=== PATIENT | female | born 1980 | race Caucasian/White ===

== ENCOUNTER 2022-03-14 10:09 | Outpatient (CLI) | payer OTHER, SELFPAY ==
--- NOTE | ~2022-03-14 | MR_ITS ---
EXAMINATION: MR brain/brain stem wo con DATE: 03/14/2022 14:00 INDICATION: Chronic migraines without aura TECHNIQUE: Magnetic resonance imaging (MRI) of the brain and brainstem was performed without intraven ous contrast. Sequences included sagittal and axial T1-weighted SE, axial diffusion-weighted FS SE, a xial T2*-weighted GRE, axial 3D SWAN, axial T2-weighted FLAIR, and axial T2-weighted FSE. Apparent di ffusion coefficient (ADC) maps were created. COMPARISON: None. FINDINGS: There are no areas of restricted diffusion to suggest acute infarction. No intracranial hemorrhage or abnormal intracranial mass lesion. There are no intraparenchymal signal abnormalities seen on the ot her pulse sequences. The ventricles are symmetric and normal in size. There are no abnormal extra-axi al fluid collections. Flow voids are seen in the cerebral arteries on the T2-weighted sequences consi stent with their expected patency. Mild mucosal thickening the right ethmoid and maxillary sinuses. V isualized orbits and soft tissues are unremarkable. IMPRESSION: 1. Normal brain. Reviewed, dictated and finalized at location A. GER PRIVATE IMPRESSION: 1. Normal brain.
== END 2022-03-14 10:10 | disposition home or self-care (01) ==
PROVIDERS: PCP Nurse Practitioner Family; Visit Provider Nurse Practitioner Family
DX: G43.709 Chronic migraine without aura, not intractable, without status migrainosus (principal); R42 Dizziness and giddiness; G44.52 New daily persistent headache (NDPH); H53.8 Other visual disturbances
CPT/HCPCS: 70551

== ENCOUNTER → 2022-04-29 11:08 | Outpatient (CLI) | payer OTHER, SELFPAY ==
--- NOTE | ~2022-04-29 | MM_ITS ---
EXAMINATION: MM screening cherelle BI w markell HISTORY: Screening mammogram TECHNIQUE: Craniocaudal and mediolateral oblique 3-D tomosynthesis images were obtained and synthetic 2-D images were generated. CAD analysis was submitted and interpreted. COMPARISON: 02/20/2014 bilateral diagnostic mammogram BREAST PARENCHYMAL COMPOSITION: There are scattered areas of fibroglandular density. FINDINGS: There is no evidence of suspicious mass, calcification, or architectural distortion to sugg est malignancy in either breast. There has been no suspicious interval change. IMPRESSION: 1. No mammographic evidence of malignancy. 2. Recommend routine screening mammography in one year. BI-RADS Category 1: Negative Reviewed, dictated and finalized at location A. 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
== END ==
PROVIDERS: PCP Nurse Practitioner Family; Visit Provider Nurse Practitioner Family
DX: Z12.31 Encounter for screening mammogram for malignant neoplasm of breast (principal)
CPT/HCPCS: 77063; 77067

== ENCOUNTER 2022-08-17 07:26 | Outpatient (CLI) | payer OTHER, SELFPAY ==
--- NOTE | ~2022-08-17 | MR_ITS ---
EXAMINATION: MR pituitary wo/w con DATE: 08/17/2022 08:29 INDICATION: Prolactinemia TECHNIQUE: Magnetic resonance imaging (MRI) of the brain and brainstem was performed without and with 20 mL Multihance intravenous contrast. Whole-brain sequences included sagittal T1-weighted FSE, axia l diffusion-weighted FS EPI, axial 3D SWAN, axial T2*-weighted GRE, axial T2-weighted FLAIR Propeller , and axial T2-weighted Propeller. Small rlmpo-zj-ztdu sequences included sagittal and coronal T1-ben ghted FSE centered at the pituitary. Postcontrast sequences included small rrnxr-sb-qjim coronal T1- weighted FSE in a time course and sagittal T1-weighted FSE and whole-brain axial T1-weighted FSE. Zo arent diffusion coefficient (ADC) maps were created. COMPARISON: None. FINDINGS: There are no areas of restricted diffusion to suggest acute infarction. No intracranial hemorrhage. T here is a 7 x 6 x 7 mm hypoenhancing mass in the mid to left side of the pituitary. No extension of p ituitary tissue above level of the sella. Pituitary stalk remains midline. Findings consistent with a pituitary microadenoma. There are no other intraparenchymal signal abnormalities seen on the other p ulse sequences. The ventricles are symmetric and normal in size. There are no abnormal extra-axial fl uid collections. Flow voids are seen in the cerebral arteries on the T2-weighted sequences consistent with their expected patency. Mucosal thickening in the paranasal sinuses. Visualized orbits and soft tissues are unremarkable. There are no other abnormally enhancing lesions on the post contrast image s. IMPRESSION: 1. 7 mm hypoenhancing mass in the mid to left side of the pituitary consistent with a pituitary micro adenoma. Reviewed, dictated and finalized at location A. IMPRESSION: 1. 7 mm hypoenhancing mass in the mid to left side of the pituitary consistent with a pituitary microadenoma.
== END 2022-08-17 07:27 | disposition home or self-care (01) ==
PROVIDERS: PCP Nurse Practitioner Family; Visit Provider Obstetrics & Gynecology Gynecology
DX: E22.1 Hyperprolactinemia (principal)
CPT/HCPCS: 70553; A9577

== ENCOUNTER → 2022-09-17 08:20 | Outpatient (CLI) | payer OTHER, SELFPAY ==
--- NOTE | ~2022-09-17 | US_ITS ---
Pelvic ultrasound. Clinical History: Irregular menses Technique: Realtime transvaginal scanning of the pelvis was performed. Color flow Doppler and Doppler spectral analysis were performed. Findings: The uterus is anteverted. The endometrial stripe has a thickness of 2 mm. No focal mass is identified. The right ovary measures 2.1 x 1.5 x 2.4 cm. No significant right ovarian or adnexal mass is seen. The left ovary measures 2.5 x 1.7 x 1.4 cm. No significant left ovarian or adnexal mass is seen. Vascular flow present in both ovaries on Doppler spectral analysis. There is no evidence of free fluid in the cul de sac. Impression: Unremarkable pelvic ultrasound. Reviewed, dictated and finalized at location . Impression: Unremarkable pelvic ultrasound.
--- NOTE | ~2022-09-17 | US_ITS ---
Thyroid ultrasound. Clinical History: Goiter Findings: Real-time sonography of the thyroid gland was performed. The right lobe measures 5.3 x 1.5 x 1.7 cm. The left lobe measures 4.3 x 1.3 x 1.5 cm. The isthmus is 3 mm in AP diameter. There is a 5 mm hypoechoic nodule in the left lower pole. Impression: 5 mm left lower pole thyroid nodule, of doubtful clinical significance. Reviewed, dictated and finalized at location . Impression: 5 mm left lower pole thyroid nodule, of doubtful clinical significance.
== END ==
PROVIDERS: PCP Obstetrics & Gynecology Gynecology; Visit Provider Internal Medicine Endocrinology, Diabetes & Metabolism
DX: E04.9 Nontoxic goiter, unspecified (principal); N92.6 Irregular menstruation, unspecified
CPT/HCPCS: 76536; 76830

== ENCOUNTER 2023-02-26 09:46 | Emergency (ER) | payer OTHER, SELFPAY ==
--- NOTE | ~2023-02-26 | US_ITS ---
EXAMINATION: US right upper quadrant DATE: 02/26/2023 14:59 INDICATION: Elevated lipase and liver function tests TECHNIQUE: Multiple grayscale and Doppler ultrasound images of the abdomen were obtained. COMPARISON: None available FINDINGS: Bowel gas obscures visualization of the pancreas. The visualized portions of the pancreas a re unremarkable. The liver demonstrates increased echogenicity, heterogenous echotexture, and decreas ed through transmission. No surface nodularity. Normal hepatopetal flow in the main portal vein. The gallbladder is normal with no abnormal wall thickening, pericholecystic fluid or stones. The normal c ommon bile duct measures 3 mm. There was no sonographic Giordano sign. IMPRESSION: 1. Diffuse hepatic steatosis. Reviewed, dictated and finalized at location B. 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
[2023-02-26 09:47] VITALS: BP 134/87; PULSE 85; RESP 16; TEMP 36.4; O2SAT 99
--- NOTE | 2023-02-26 10:16 | ED.NAVMDI ---
HPI - Nausea/Vomiting/Diarrhea General Chief complaint: Nausea/Vomiting/Diarrhea <Cynthia Astudillo PA-C - Last Filed: 02/26/23 20:20> Stated complaint: 5 1/2 WKS PREG N/V <Cynthia Astudillo PA-C - Last Filed: 02/26/23 20:20> Time Seen by Provider: 02/26/23 10:10 <Cynthia Astudillo PA-C - Last Filed: 02/26/23 20:20> History of Present Illness HPI Narrative: 43-year-old female, , LMP 01/07/2023, who is currently 5 and half weeks gestation reports for evaluation for nausea and vomiting x3 days. Patient states she has been having difficulty keeping down food and fluids secondary to nausea and vomiting. States she called her OB office who advised her to come to the ED for further evaluation IV fluids. She reports a mild cough, denies sore throat, otalgia, congestion. She reports intermittent epigastric abdominal pain but states she is not having any abdominal pain now. She denies suprapubic pain, vaginal bleeding or vaginal discharge. Denies dysuria, hematuria, urinary frequency or urgency, diarrhea. <PAMELA Collins Last Filed: 02/26/23 20:20> Related Data Allergies/Adverse reactions: Allergies Allergy/AdvReac Type Severity Reaction Status Date / Time No Known Allergies Allergy Mild Verified 12/09/07 01:18 <Cynthia Astudillo PA-C - Last Filed: 02/26/23 20:20> Review of Systems Review of Systems: CONSTITUTIONAL: Denies fever, chills, or sweats. EYES: Denies visual changes, redness, or discharge. ENT: Denies rhinorrhea, congestion, sore throat, or otalgia. CARDIOVASCULAR: Denies chest pain, palpitations, or edema. RESPIRATORY: Denies cough or dyspnea. GASTROINTESTINAL: See HPI GENITOURINARY: Denies dysuria or hematuria. SKIN: Denies rash or itching. MUSCULOSKELETAL: Denies back pain, joint pain, or myalgia. NEUROLOGIC: Denies headache, numbness, or weakness. PSYCHIATRIC: Denies anxiety or depression. <Cynthia Astudillo PA-C - Last Filed: 02/26/23 20:20> Exam Narrative: GENERAL: Well-appearing, well-nourished, and in no acute distress. patient resting comfortably in exam bed. She is pleasant and conversational. HEAD: Normocephalic, atraumatic. EYES: PERRLA and EOMI. ENT: Nares clear, no rhinorrhea or epistaxis. Mucous membranes tacky. NECK: Supple. CHEST: Clear to auscultation. No respiratory distress. HEART: Regular rate and rhythm. No murmur heard. Normal peripheral pulses. ABDOMEN: Soft, nontender, nondistended, normal active bowel sounds. no guarding, rebound or rigidity. No CVA tenderness. Negative Giordano's. EXTREMITIES: Normal range of motion. No edema. SKIN: Warm, dry, no rash. NEURO: No focal deficits. Alert and oriented x3 <Cynthia Astudillo PA-C - Last Filed: 02/26/23 20:20> Course DISABILITY SERVICES COORDINATOR/PA Physician Supervision This visit was performed by both a physician and an APC. I performed all aspects of the MDM as documented. <Alicia Saldivar MD - Last Filed: 02/26/23 20:27> Vital Signs Vital signs: Vital Signs Temperature 97.6 F 02/26/23 09:47 Pulse Rate 85 02/26/23 09:47 Respiratory Rate 16 02/26/23 09:47 Blood Pressure 134/87 02/26/23 09:47 Pulse Oximetry 99 02/26/23 09:47 Temperature 98.0 F 02/26/23 15:29 Pulse Rate 71 02/26/23 15:29 Respiratory Rate 18 02/26/23 15:29 Blood Pressure 116/74 02/26/23 15:29 Pulse Oximetry 100 02/26/23 15:29 <Cynthia Astudillo PA-C - Last Filed: 02/26/23 20:20> Vital Signs Temperature 97.6 F 02/26/23 09:47 Pulse Rate 85 02/26/23 09:47 Respiratory Rate 16 02/26/23 09:47 Blood Pressure 134/87 02/26/23 09:47 Pulse Oximetry 99 02/26/23 09:47 Temperature 98.0 F 02/26/23 15:29 Pulse Rate 71 02/26/23 15:29 Respiratory Rate 18 02/26/23 15:29 Blood Pressure 116/74 02/26/23 15:29 Pulse Oximetry 100 02/26/23 15:29 <Alicia Saldivar MD - Last Filed: 02/26/23 20:27> MDM - Nausea/Vomiting/Diarrhea MDM Narrative [facility]
[2023-02-26] MEDS: METOCLOPRAMIDE HCL INJ 10 MG/2 ML VIAL IV PUSH (10:43)
[2023-02-26] MEDS: SODIUM CHLORIDE 0.9% IV 1,000 ML 999 ML IV CONT ×2 (10:43→12:48)
[2023-02-26 11:01] LABS: Basophils Absolute Auto 0.1 K/mm3 (0.0-0.1); Basophils Percent Auto 0.5 % (0.2-1.2); Eosinophils Absolute Auto 0.1 K/mm3 (0-0.3); Eosinophils Percent Auto 1.1 % (0-4.4); Hematocrit 39.8 % (37.0-47.0); Hemoglobin 13.3 g/dL (12.0-15.0); Immature Granulocyte Absolute 0.06 K/mm3 (0.00-0.031); Immature Granulocyte Percent A 0.5 % (0-0.5); Lymphocytes Absolute Auto 1.78 K/mm3 (0.9-3.2); Lymphocytes Percent Auto 14.6 % (18.3-44.2); Mean Corpuscular HGB Conc 33.4 g/dl (32-36); Mean Corpuscular Hemoglobin 29.3 pg (26-34); Mean Corpuscular Volume 87.7 fl (80-100); Monocytes Absolute Auto 0.8 K/mm3 (0.1-0.6); Monocytes Percent Auto 6.7 % (2.6-8.5); Neutrophils Absolute Auto 9.3 K/mm3 (1.3-6.7); Neutrophils Percent Auto 76.6 % (45.5-73.1); Platelet Count Result 302 k/mm3 (150-375); Red Blood Count 4.54 M/mm3 (4.2-5.4); Red Cell Distribution Width 13.1 % (11.5-14.5); White Blood Count 12.2 K/mm3 (4.5-10.0)
--- NOTE | 2023-02-26 11:03 | PC.NURSE ---
Pt reports last meal that she didn't vomit wa 02/21/23. Reports since then unable to keep liquids or solid food down. No emesis since arrival to ER
[2023-02-26 11:12] LABS: Alanine Aminotransferase 86 U/L (6-35); Albumin Level 4.6 g/dL (3.5-5.1); Alkaline Phosphatase 69 U/L (38-126); Anion Gap 13 mmol/L (8-16); Aspartate Amino Transferase 61 U/L (14-36); Blood Urea Nitrogen 9 mg/dL (7-17); Calcium 9.3 mg/dL (8.4-10.2); Carbon Dioxide 20 mmol/L (22-30); Chloride 103 mmol/L (98-107); Estimated CRCL calculation 137 ml/min; Estimated Glomerular Filt Rate > 60; Glucose 96 mg/dL (65-110); Potassium 3.9 mmol/L (3.4-5.0); Sodium 136 mmol/L (137-145)
[2023-02-26 11:20] LABS: Appearance Urine Cloudy (Clear); Bacteria Urine 3+ /hpf; Bilirubin Urine 2+ (Negative); Blood Urine Negative (Negative); Color Urine Dark Yellow (Yellow); Glucose Urine UA Negative (Negative); Influenza A QL RT-PCR Negative (Negative); Influenza B QL RT-PCR Negative (Negative); Ketones Urine 4+ mg/dL (Negative); Leukocyte Esterase Ur Trace LEU/UL (Negative); Mucus Urine Present /lpf; Need Manual Microscopic Reviewed; Nitrate Urine Negative (Negative); Protein Urine Trace mg/dL (Negative); RSV RNA, RT-PCR Negative (Negative); SARS-CoV-2 RNA PCR Negative (Negative); Specific Grav Ur 1.033 (1.001-1.035); Squamous Epithelial Cell Urine Few /hpf (Few); pH Urine 5.5 (5.0-9.0)
[2023-02-26 11:36] LABS: Add Urine Microscopic? YES
[2023-02-26 11:36] LABS: Serum Qual hCG Positive
[2023-02-26 11:38] LABS: SPREG INTERNAL CONTROL Positive
[2023-02-26 12:00] VITALS: BP 115/73; PULSE 63; RESP 18; O2SAT 100
[2023-02-26 13:09] VITALS: BP 111/78; PULSE 64; RESP 16; O2SAT 100
[2023-02-26 13:45] VITALS: BP 116/74; PULSE 65; RESP 18; O2SAT 100
[2023-02-26 14:27] LABS: Lipase 387 U/L (23-300)
[2023-02-26 15:29] VITALS: BP 116/74; PULSE 71; RESP 18; TEMP 36.7; O2SAT 100
== END 2023-02-26 15:43 | disposition home or self-care (01) ==
PROVIDERS: Emergency Provider Physician Assistant; PCP Obstetrics & Gynecology Gynecology
DX: O21.9 Vomiting of pregnancy, unspecified (principal); O99.611 Diseases of the digestive system complicating pregnancy, first trimester; K76.0 Fatty (change of) liver, not elsewhere classified; Z20.822 Contact with and (suspected) exposure to COVID-19; O09.511 Supervision of elderly primigravida, first trimester; Z3A.01 Less than 8 weeks gestation of pregnancy
CPT/HCPCS: 36415; 76705; 80053; 81001; 83690; 84702; 84703; 85025; 87086; 87088; 87637; 96361; 96374; 99284; J2765; J7030

== ENCOUNTER 2023-03-05 09:58 | Outpatient (CLI) | payer OTHER, SELFPAY ==
--- NOTE | ~2023-03-05 | US_ITS ---
EXAMINATION: US OB transvaginal DATE: 1980 INDICATION: viability. TECHNIQUE: Real-time transvaginal pelvic ultrasound was performed. COMPARISON: None. FINDINGS: The uterus measures 8.8 x 5.2 x 8.1 cm. There is an intrauterine gestational sac. A yolk sac is ident ified. The crown rump length measures 1.5 cm, which correlates with an estimated gestational a ge of 8 weeks and 0 day(s) (+/-) 5 day(s). heart motion is identified measuring 168 beats per m inute (bpm) by M-mode Doppler. The right ovary measures 4.8 x 3.1 x 4.4 cm. There is a 3.6 cm cyst in right ovary, likely a follicular cyst. The left ovary is not visualized. There is physiologic free f luid in the pelvis. IMPRESSION: 1. Single living intrauterine gestation with estimated date of delivery of 10/15/2023. Reviewed, dictated and finalized at location E. OUTFITTING SUPERVISOR IMPRESSION: 1. Single living intrauterine gestation with estimated date of delivery of 09/29.
== END 2023-03-05 09:59 ==
PROVIDERS: PCP Obstetrics & Gynecology Gynecology; Visit Provider Obstetrics & Gynecology Gynecology
DX: O36.80X0 Pregnancy with inconclusive fetal viability, not applicable or unspecified (principal); Z3A.00 Weeks of gestation of pregnancy not specified
CPT/HCPCS: 76817

== ENCOUNTER 2023-04-06 14:16 | Observation (INO) | payer OTHER, SELFPAY ==
[2023-04-06 14:56] VITALS: PULSE 67; O2SAT 100
[2023-04-06 14:57] VITALS: BP 114/78; PULSE 68; RESP 16; TEMP 36.3
[2023-04-06] MEDS: ONDANSETRON INJ 4 MG/2 ML VIAL IV PUSH ×2 (15:06→22:15)
[2023-04-06] MEDS: DEXTROSE 5%/LACTATED RINGERS 1,000 ML 250 ML IV CONT (15:06)
[2023-04-06] MEDS: LACTATED RINGERS 1,000 ML 999 ML IV CONT (15:07)
[2023-04-06 15:20] LABS: Hemoglobin 11.5 g/dL (12.0-15.0); Mean Corpuscular HGB Conc 33.8 g/dl (32-36); Mean Corpuscular Hemoglobin 29.2 pg (26-34); Mean Corpuscular Volume 86.3 fl (80-100); Mean Platelet Volume 11.1 fl (7.4-10.4); Platelet Count Result 293 k/mm3 (150-375); Red Blood Count 3.94 M/mm3 (4.2-5.4); Red Cell Distribution Width 12.9 % (11.5-14.5)
[2023-04-06 15:37] VITALS: BMI 37.1
--- NOTE | 2023-04-06 15:38 | OBADM ---
This patient, Xochitl Cabello, admitted to the OB room OB Post 116 for observation. Patient/family oriented to hospital policies and general routines including ID bracelet, bed and alarms, visiting hours, pain management, procedures, bathroom and other care routines, personal items, smoking policy, room service/diet, and visiting hours. Patient/Family are encouraged to report perceived risks to care and to ask questions if they do not understand what they are told or what they should do.
[2023-04-06 15:41] LABS: Alanine Aminotransferase 194 U/L (6-35); Alkaline Phosphatase 58 U/L (38-126); Anion Gap 8 mmol/L (8-16); Aspartate Amino Transferase 96 U/L (14-36); Blood Urea Nitrogen 5 mg/dL (7-17); Calcium 9.2 mg/dL (8.4-10.2); Carbon Dioxide 23 mmol/L (22-30); Chloride 99 mmol/L (98-107); Estimated Glomerular Filt Rate > 60; Glucose 102 mg/dL (65-110); Sodium 130 mmol/L (137-145)
[2023-04-06 16:01] LABS: Thyroid Stimulating Hormone 0.433 uIU/mL (0.465-4.680)
[2023-04-06 16:25] LABS: Free T4 Free Thyroxine 1.59 ng/mL (0.78-2.19)
[2023-04-06] MEDS: PROMETHAZINE HCL 25 MG/ML AMPUL IM ×2 (16:28→20:26)
--- NOTE | 2023-04-06 16:47 | PC.NURSE ---
Miriam OSPINA notifed of lab results.
[2023-04-06] MEDS: DEXTROSE 5%/LACTATED RINGERS 1,000 ML 175 ML IV CONT (19:02)
--- NOTE | 2023-04-06 19:40 | PC.NURSE ---
1846: Dr. Renteria called to discuss patient status. Pt is feeling better with fluids and nausea medication given. gave orders that patient can go home after her second bag of D5/LR is done. She is to be discharged with suppository zofran, phenergine and hydroxyzine. She is to follow up in the office on Wednesday for a weight check.
[2023-04-10 05:54] LABS: Thyroid Peroxidase Antibodies <1 IU/mL (<9)
--- NOTE | 2023-04-12 08:28 | PM.OBTRLD ---
OB - Triage/Final Diagnosis Visit Information Reason for evaluation: other ( hyperemesis) Comments/Additional reasons for admission: I have assessed the risk for this patient, Xochitl Escamilla Destiney, and determined that she would benefit from observation care. Evaluation Laboratory results: Laboratory Tests 04/06/23 04/06/23 04/06/23 14:50 14:50 14:50 WBC 10.0 RBC 3.94 L Hgb 11.5 L Hct 34.0 L MCV 86.3 MCH 29.2 MCHC 33.8 RDW 12.9 Plt Count 293 MPV 11.1 H Sodium Cancelled 130 L Potassium Cancelled 4.0 Chloride Cancelled Carbon Dioxide Anion Gap BUN Creatinine Estim Creat Clear Calc Estimated GFR Glucose Calcium Total Bilirubin AST ALT Alkaline Phosphatase Total Protein Albumin TSH Free T4 Thyroid Peroxidase Ab 04/06/23 04/06/23 04/06/23 14:50 14:50 14:50 WBC RBC Hgb Hct MCV MCH MCHC RDW Plt Count MPV Sodium Potassium Chloride 99 Carbon Dioxide Cancelled 23 Anion Gap Cancelled 8 BUN Cancelled Creatinine Estim Creat Clear Calc Estimated GFR Glucose Calcium Total Bilirubin AST ALT Alkaline Phosphatase Total Protein Albumin TSH Free T4 Thyroid Peroxidase Ab 04/06/23 04/06/23 04/06/23 14:50 14:50 14:50 WBC RBC Hgb Hct MCV MCH MCHC RDW Plt Count MPV Sodium Potassium Chloride Carbon Dioxide Anion Gap BUN 5 L Creatinine Cancelled 0.60 L Estim Creat Clear Calc Cancelled Not Reportable Estimated GFR Cancelled Glucose Calcium Total Bilirubin AST ALT Alkaline Phosphatase Total Protein Albumin TSH Free T4 Thyroid Peroxidase Ab 04/06/23 04/06/23 04/06/23 14:50 14:50 14:50 WBC RBC Hgb Hct MCV MCH MCHC RDW Plt Count MPV Sodium Potassium Chloride Carbon Dioxide Anion Gap BUN Creatinine Estim Creat Clear Calc Estimated GFR > 60 Glucose Cancelled 102 Calcium Cancelled 9.2 Total Bilirubin Cancelled AST ALT Alkaline Phosphatase Total Protein Albumin TSH Free T4 Thyroid Peroxidase Ab 04/06/23 04/06/23 04/06/23 14:50 14:50 14:50 WBC RBC Hgb Hct MCV MCH MCHC RDW Plt Count MPV Sodium Potassium Chloride Carbon Dioxide Anion Gap BUN Creatinine Estim Creat Clear Calc Estimated GFR Glucose Calcium Total Bilirubin 1.0 AST Cancelled 96 H ALT Cancelled 194 H Alkaline Phosphatase Cancelled Total Protein Albumin TSH Free T4 Thyroid Peroxidase Ab 04/06/23 04/06/23 04/06/23 14:50 14:50 14:50 WBC RBC Hgb Hct MCV MCH MCHC RDW Plt Count MPV Sodium Potassium Chloride Carbon Dioxide Anion Gap BUN Creatinine Estim Creat Clear Calc Estimated GFR Glucose Calcium Total Bilirubin AST ALT Alkaline Phosphatase 58 Total Protein Cancelled 7.0 Albumin Cancelled 4.0 TSH 0.433 L Free T4 1.59 Thyroid Peroxidase Ab <1
== END 2023-04-07 00:10 | disposition home or self-care (01) ==
PROVIDERS: Admitting Provider Obstetrics & Gynecology Gynecology; PCP Advanced Practice Midwife; Visit Provider Obstetrics & Gynecology Gynecology
DX: O21.0 Mild hyperemesis gravidarum (principal); Z3A.12 12 weeks gestation of pregnancy
CPT/HCPCS: 36415; 80053; 84439; 84443; 84480; 85027; 86376; 96372; 96374; 96376; G0378; G0379; J2405; J2550; J7120; J7121

== ENCOUNTER 2023-08-09 01:57 | Observation (INO) | payer OTHER, SELFPAY ==
[2023-08-09 02:00] VITALS: BMI 38.7
[2023-08-09 02:46] LABS: Appearance Urine Clear (Clear); Bacteria Urine 2+ /hpf; Bilirubin Urine Negative (Negative); Blood Urine Negative (Negative); Color Urine Yellow (Yellow); Glucose Urine UA Negative (Negative); Ketones Urine Negative (Negative); Leukocyte Esterase Ur Trace LEU/UL (Negative); Nitrate Urine Negative (Negative); Non Pathogenic Casts 0-2; Protein Urine Negative (Negative); RBC Urine 0-2 /hpf (0-2); Specific Grav Ur 1.013 (1.001-1.035); Squamous Epithelial Cell Urine Few /hpf (Few); Urobilinogen Urine 0.2 mg/dL (<2.0); pH Urine 6.5 (5.0-9.0)
[2023-08-09 03:14] LABS: Add Urine Microscopic? YES
--- NOTE | 2023-08-09 03:24 | OBADM ---
This patient, Xochitl Cabello, admitted to the OB room OB Post 117 for observation. Patient/family oriented to hospital policies and general routines including ID bracelet, bed and alarms, visiting hours, pain management, procedures, bathroom and other care routines, personal items, smoking policy, room service/diet, and visiting hours. Patient/Family are encouraged to report perceived risks to care and to ask questions if they do not understand what they are told or what they should do.
--- NOTE | 2023-08-11 17:45 | P.PNOB_ITS ---
OB - Triage/Final Diagnosis Visit Information Date of evaluation: 08/09/23 Reason for evaluation: other (back pain) Comments/Additional reasons for admission: I have assessed the risk for this patient, Xochitl Gongorar, and determined that she would benefit from observation care. Evaluation Laboratory results: Laboratory Tests 08/09/23 02:27 Urine Color Yellow Urine Appearance Clear Urine pH 6.5 Ur Specific [place] 1.013 Urine Protein Negative Urine Glucose (UA) Negative Urine Ketones Negative Ur Blood (Man) Negative Urine Nitrate Negative Urine Bilirubin Negative Urine Urobilinogen 0.2 Leukocyte Esterase Rfl Trace H Urine RBC 0-2 Urine WBC 11-20 H Ur Squamous Epith Cells Few Urine Bacteria 2+ H Urine Casts 0-2 Comments: NST reactive, VSS. Pain improved spontaneously. No evidence of ROM or active labor.
== END 2023-08-09 03:35 ==
PROVIDERS: Advanced Practice Midwife; Admitting Provider Obstetrics & Gynecology Gynecology; PCP Nurse Practitioner Family; Visit Provider Obstetrics & Gynecology Gynecology
DX: O99.891 Other specified diseases and conditions complicating pregnancy (principal); M54.9 Dorsalgia, unspecified; Z3A.30 30 weeks gestation of pregnancy
CPT/HCPCS: 81001; 87086; 87088; G0378; G0379

== ENCOUNTER 2023-09-01 12:39 | Outpatient (CLI) | payer OTHER, SELFPAY ==
--- NOTE | ~2023-09-01 | US_ITS ---
EXAMINATION: US OB follow up DATE: 09/01/2023 13:11 INDICATION: Expected size less than expected for estimated gestational age during third trimest er . TECHNIQUE: Real-time ultrasound of the pelvis was performed. The interpreting radiologist was not pre sent for the study. COMPARISON: 03/05/23 FINDINGS: There is a single living fetus in breech presentation. The placenta is posterior and not low-lying. heart rate is 130 beats per minute (bpm). The amniotic fluid index is 15.6 cm, which is normal (5th%-95%: 8.3-24.5 cm at 33 weeks estimated gestational age). The following biometric data were obtained: BPD: 8.3 cm -> 33 weeks 2 days Head circumference: 30.2 cm -> 33 weeks 4 days Abdominal circumference: 29.5 cm -> 33 weeks 3 days Femur length: 6.3 cm -> 32 weeks 5 days These measurements are concordant. Head circumference to abdominal circumference ratio: 1.03 (normal range 0.96-1.11). Estimated weight: 2154 g (+/-) 323 g or 4 lbs. 12 oz. (+/-) 11 oz. IMPRESSION: 1. Single living fetus in breech presentation with heart rate of 130 bpm. 2. Normal amniotic fluid index of 15.6 cm. 3. Estimated weight is 29th percentile by Hadlock criteria when 10/15/2023 is used as the estima rene date of delivery (VINICIO). Please correlate with clinical information or earlier ultrasounds for mos t accurate VINICIO. Reviewed, dictated and finalized at location B. IMPRESSION: 1. Single living fetus in breech presentation with heart rate of 130 bpm. 2. Normal amniotic fluid index of 15.6 cm. 3. Estimated weight is 29th percentile by Hadlock criteria when 10/15/2023 is used as the estimated date of delivery (VINICIO). Please correlate with clinica l information or earlier ultrasounds for most accurate VINICIO.
== END 2023-09-01 12:40 ==
LOC: MICIMG 12:40
PROVIDERS: PCP Advanced Practice Midwife; Visit Provider Advanced Practice Midwife
DX: O36.5930 Maternal care for other known or suspected poor fetal growth, third trimester, not applicable or unspecified (principal); Z3A.00 Weeks of gestation of pregnancy not specified
CPT/HCPCS: 76816

== ENCOUNTER 2023-09-18 08:54 | Outpatient (CLI) | payer OTHER, SELFPAY ==
[2023-09-18] VITALS (19 sets, daily range): BP systolic 108–120; BP diastolic 68–74; PULSE 73–98; O2SAT 96–100; BMI 41.6
[2023-09-18] MEDS: TERBUTALINE SULFATE 1 MG/ML VIAL 0.25 MG SUB-Q (09:45)
--- NOTE | 2023-09-18 10:08 | W.PM.PROC2 ---
Procedure Note - Detailed Date of Procedure 09/18/23 Pre-op Diagnosis External Version Post-op Diagnosis Same Procedure Performed failed external version Surgeon Rosio Renteria MD Anesthesia None Findings vertex RUQ with infant back down. Normal fluid. Description of Procedure Attempted x 4 to manually rotate infant without success. Ultrasound guided. Fetus and mother tolerated well. Estimated Blood Loss 0 Drains No Packing No Pathology None sent Complications No immediate complications Condition Stable Disposition Observation
== END 2023-09-18 10:30 | disposition home or self-care (01) ==
LOC: ANHOBOP 08:57 → ANHOBPP 08:58
PROVIDERS: PCP Nurse Practitioner Family; Visit Provider Obstetrics & Gynecology Gynecology
DX: O32.1XX0 Maternal care for breech presentation, not applicable or unspecified (principal); Z3A.00 Weeks of gestation of pregnancy not specified
CPT/HCPCS: 99199; J3105

== ENCOUNTER 2023-09-18 22:46 | Observation (INO) | payer OTHER, SELFPAY ==
[2023-09-18 23:00] VITALS: BMI 41.3
[2023-09-18 23:21] VITALS: BP 131/81; PULSE 70
[2023-09-18 23:31] VITALS: BP 107/72; PULSE 78
[2023-09-18 23:31] LABS: Appearance Urine Clear (Clear); Bacteria Urine 2+ /hpf; Bilirubin Urine Negative (Negative); Blood Urine Negative (Negative); Color Urine Yellow (Yellow); Glucose Urine UA Negative (Negative); Ketones Urine Trace mg/dL (Negative); Leukocyte Esterase Ur Trace LEU/UL (Negative); Nitrate Urine Negative (Negative); Protein Urine Trace mg/dL (Negative); RBC Urine 0-2 /hpf (0-2); Specific Grav Ur 1.024 (1.001-1.035); Squamous Epithelial Cell Urine Few /hpf (Few)
[2023-09-18 23:32] LABS: Add Urine Microscopic? YES
[2023-09-18] MEDS: CYCLOBENZAPRINE HCL 10 MG TABLET PO (23:48)
--- NOTE | 2023-09-27 08:47 | PM.OBTRLD ---
OB - Triage/Final Diagnosis Visit Information Reason for evaluation: other (back pain) Comments/Additional reasons for admission: I have assessed the risk for this patient, Xochitl Cabello, and determined that she would benefit from observation care. Evaluation Laboratory results: Laboratory Tests 09/18/23 23:15 Urine Color Yellow Urine Appearance Clear Urine pH 7.0 Ur Specific [place] 1.024 Urine Protein Trace Urine Glucose (UA) Negative Urine Ketones Trace H Ur Blood (Man) Negative Urine Nitrate Negative Urine Bilirubin Negative Urine Urobilinogen 1.0 Leukocyte Esterase Rfl Trace H Urine RBC 0-2 Urine WBC 11-20 H Ur Squamous Epith Cells Few Urine Bacteria 2+ H Urine Casts 3-5
== END 2023-09-19 01:02 ==
PROVIDERS: Admitting Provider Obstetrics & Gynecology Gynecology; PCP Nurse Practitioner Family; Visit Provider Obstetrics & Gynecology Gynecology
DX: O99.891 Other specified diseases and conditions complicating pregnancy (principal); M54.9 Dorsalgia, unspecified; Z3A.36 36 weeks gestation of pregnancy
CPT/HCPCS: 81001; 87086; 87088; 99199; A9270; G0378; G0379; J3105

== ENCOUNTER 2023-09-28 10:39 | Outpatient (CLI) | payer OTHER, SELFPAY ==
[2023-09-28 10:53] VITALS: BP 109/79; PULSE 92
[2023-09-28 11:15] VITALS: BP 109/70; PULSE 89
[2023-09-28] MEDS: ACETAMINOPHEN 500 MG TABLET 1000 MG PO (11:25)
[2023-09-28 11:28] LABS: Basophils Absolute Auto 0.1 K/mm3 (0.0-0.1); Basophils Percent Auto 0.4 % (0.2-1.2); Eosinophils Absolute Auto 0.1 K/mm3 (0-0.3); Hematocrit 33.7 % (37.0-47.0); Hemoglobin 10.8 g/dL (12.0-15.0); Immature Granulocyte Absolute 0.06 K/mm3 (0.00-0.031); Immature Granulocyte Percent A 0.5 % (0-0.5); Lymphocytes Absolute Auto 1.78 K/mm3 (0.9-3.2); Lymphocytes Percent Auto 13.7 % (18.3-44.2); Mean Corpuscular Hemoglobin 28.4 pg (26-34); Mean Corpuscular Volume 88.7 fl (80-100); Mean Platelet Volume 11.1 fl (7.4-10.4); Monocytes Absolute Auto 0.7 K/mm3 (0.1-0.6); Monocytes Percent Auto 5.1 % (2.6-8.5); Neutrophils Absolute Auto 10.3 K/mm3 (1.3-6.7); Neutrophils Percent Auto 79.3 % (45.5-73.1); Platelet Count Result 299 k/mm3 (150-375); Red Cell Distribution Width 14.2 % (11.5-14.5)
[2023-09-28 11:30] VITALS: BP 112/75; PULSE 88
[2023-09-28 11:30] LABS: Alanine Aminotransferase 43 U/L (6-35); Albumin Level 3.6 g/dL (3.5-5.1); Alkaline Phosphatase 156 U/L (38-126); Anion Gap 11 mmol/L (4-12); Aspartate Amino Transferase 58 U/L (14-36); Bilirubin,Total 0.4 mg/dL (0.2-1.3); Blood Urea Nitrogen 6 mg/dL (7-17); Carbon Dioxide 18 mmol/L (22-30); Chloride 104 mmol/L (98-107); Estimated Glomerular Filt Rate > 60; Glucose 122 mg/dL (65-110); Potassium 3.4 mmol/L (3.4-5.0); Sodium 133 mmol/L (137-145); Uric Acid 4.5 mg/dL (2.5-7.5)
[2023-09-28 11:31] LABS: Creatinine Urine 190.3 mg/dL
[2023-09-28 11:32] LABS: Appearance Urine Cloudy (Clear); Bacteria Urine 4+ /hpf; Bilirubin Urine Negative (Negative); Blood Urine Negative (Negative); Color Urine Dark Yellow (Yellow); Glucose Urine UA Negative (Negative); Ketones Urine Trace mg/dL (Negative); Leukocyte Esterase Ur 1+ LEU/UL (Negative); Need Manual Microscopic Reviewed; Nitrate Urine Negative (Negative); Protein Urine Trace mg/dL (Negative); RBC Urine 0-2 /hpf (0-2); Specific Grav Ur 1.021 (1.001-1.035); Squamous Epithelial Cell Urine Occasional /hpf (Few); Urobilinogen Urine 0.2 mg/dL (<2.0); WBC Urine 21-50 /hpf (0-3)
[2023-09-28 11:34] LABS: Add Urine Microscopic? YES
[2023-09-28 11:37] LABS: Total Protein Urine Random < 5 mg/dL; Ur Ttl Prot Creatinine Ratio < 0.03 mg/mg (0-0.20)
[2023-09-28 11:45] VITALS: BP 111/71; PULSE 82; BMI 41.6
[2023-09-28 12:06] VITALS: BP 111/71; PULSE 85
== END 2023-09-28 12:13 | disposition home or self-care (01) ==
LOC: ANHOBOP 10:42 → ANHOBPP 10:43
PROVIDERS: PCP Nurse Practitioner Family; Visit Provider Advanced Practice Midwife
DX: O13.9 Gestational [pregnancy-induced] hypertension without significant proteinuria, unspecified trimester (principal); Z3A.00 Weeks of gestation of pregnancy not specified
CPT/HCPCS: 36415; 59025; 80053; 81001; 82570; 84156; 84550; 85025; 87086; 99199; A9270

== ENCOUNTER 2023-09-30 09:20 | Outpatient (CLI) | payer OTHER, SELFPAY ==
[2023-09-30 09:43] LABS: Basophils Percent Auto 0.3 % (0.2-1.2); Eosinophils Absolute Auto 0.2 K/mm3 (0-0.3); Eosinophils Percent Auto 1.2 % (0-4.4); Hematocrit 34.8 % (37.0-47.0); Hemoglobin 11.5 g/dL (12.0-15.0); Immature Granulocyte Absolute 0.07 K/mm3 (0.00-0.031); Immature Granulocyte Percent A 0.5 % (0-0.5); Lymphocytes Absolute Auto 1.98 K/mm3 (0.9-3.2); Lymphocytes Percent Auto 14.3 % (18.3-44.2); Mean Corpuscular Hemoglobin 29.6 pg (26-34); Mean Corpuscular Volume 89.5 fl (80-100); Monocytes Absolute Auto 0.6 K/mm3 (0.1-0.6); Monocytes Percent Auto 4.1 % (2.6-8.5); Neutrophils Percent Auto 79.6 % (45.5-73.1); Platelet Count Result 293 k/mm3 (150-375); Red Blood Count 3.89 M/mm3 (4.2-5.4); Red Cell Distribution Width 14.3 % (11.5-14.5); White Blood Count 13.8 K/mm3 (4.5-10.0)
[2023-09-30 09:55] LABS: Alanine Aminotransferase 26 U/L (6-35); Albumin Level 3.7 g/dL (3.5-5.1); Alkaline Phosphatase 158 U/L (38-126); Anion Gap 11 mmol/L (4-12); Aspartate Amino Transferase 23 U/L (14-36); Bilirubin,Total 0.3 mg/dL (0.2-1.3); Blood Urea Nitrogen 7 mg/dL (7-17); Calcium 8.6 mg/dL (8.4-10.2); Carbon Dioxide 21 mmol/L (22-30); Chloride 102 mmol/L (98-107); Estimated Glomerular Filt Rate > 60; Glucose 127 mg/dL (65-110); Potassium 3.7 mmol/L (3.4-5.0); Sodium 134 mmol/L (137-145); Uric Acid 3.7 mg/dL (2.5-7.5)
[2023-09-30 09:57] VITALS: BMI 41.5
[2023-09-30 10:15] LABS: Collection Time Urine 24 HOURS
[2023-09-30 10:29] LABS: Patient Weight 257 Lbs
[2023-09-30 11:14] LABS: Total Volume 24 Hour Urine 3500 ml
[2023-09-30 11:20] LABS: Creatinine Clearance Urine 181.7 ml/min (75-125); Creatinine Urine 47.9 mg/dL
[2023-09-30 12:52] LABS: Total Protein Urine 24 Hr 340 mg/24hr (0-149); Total Protein Urine Random 9.7 mg/dL (0.0-11.9)
== END 2023-09-30 09:21 | disposition home or self-care (01) ==
LOC: ANHOBOP 09:30
PROVIDERS: PCP Nurse Practitioner Family; Visit Provider Advanced Practice Midwife
DX: Z34.90 Encounter for supervision of normal pregnancy, unspecified, unspecified trimester (principal); Z3A.00 Weeks of gestation of pregnancy not specified
CPT/HCPCS: 36415; 80053; 81050; 82575; 84156; 84550; 85025

== ENCOUNTER 2023-10-01 06:00 | Inpatient (IN) | payer OTHER, SELFPAY ==
[2023-10-01] VITALS (62 sets, daily range): BP systolic 82–118; BP diastolic 45–102; PULSE 53–84; RESP 12–18; TEMP 36.1–37.2; O2SAT 99–100; BMI 41.5
[2023-10-01] MEDS: ACETAMINOPHEN 500 MG TABLET 1000 MG PO (06:25)
[2023-10-01] MEDS: LACTATED RINGERS 1,000 ML 125 ML IV CONT (06:47)
--- NOTE | 2023-10-01 06:49 | LDADM ---
This patient, Xochitl Cabello, was admitted to Labor/Delivery/Recovery 120 on 10/01/23 at 06:00. Plans for labor, pain management and were discussed with patient. Patient/family oriented to hospital policies and general routines including ID bracelet, bed and alarms, visiting hours, pain management, procedures, bathroom and other care routines, personal items, smoking policy, room service/diet and guest tray routines, security routines, and visiting hours. Patient/Family are encouraged to report perceived risks to care and to ask questions if they do not understand what they are told or what they should do. See OBIX for further documentation.
--- NOTE | 2023-10-01 07:11 | WPDANESEPPF ---
Anes - Initial Pre Proc Eval Procedure: Operation Date: 10/01/23 08:00 Proposed Procedures p Section - Rosio Renteria MD Date/Time: 10/01/23 07:11 Surgeon: Rosio Renteria MD Pre Op Diagnosis: C/S Patient Data Age: 43 Gender: F Height: 1.68 m Weight: 116.8 kg Last Vital Signs Pulse 72 10/01/23 07:00 BP 113/73 10/01/23 07:00 O2 Del Method Room Air 10/01/23 06:49 Allergies Allergy/AdvReac Type Severity Reaction Status Date / Time No Known Allergies Allergy Mild Verified 09/18/23 09:20 Home Medications Medication Instructions Recorded Confirmed Type ondansetron 4 mg disintegrating 4 mg PO Q6H #12 tabs 04/06/23 09/18/23 Rx tablet aspirin 81 mg tablet 81 mg PO DAILY 09/15/23 09/18/23 History cholecalciferol (vitamin D3) 125 125 mcg PO DAILY 09/15/23 09/18/23 History mcg (5,000 unit) tablet (Vitamin D3) ferrous sulfate 325 mg (65 mg 325 mg PO DAILY 09/15/23 09/18/23 History iron) tablet vits no.126-ferrous fum 1 tablet PO DAILY 09/15/23 09/18/23 History 28 mg iron-folic acid 800 mcg tablet (Classic ) sertraline 50 mg tablet 50 mg PO DAILY 09/15/23 09/18/23 History cyclobenzaprine 10 mg tablet 10 mg PO Q8H PRN Muscle Spasm 7 09/19/23 Rx days #15 tabs Laboratory Tests 10/01/23 06:38 RPR Pending HIV 1&2 Ab/P24 Ag 4thGn Pending Patient hx anesthesia problems: none Family hx anesthesia problems: none Results Review: All pre-operative results and documents have been reviewed as part of the pre-operative evaluation. [facility] Past Medical History Medical History (Updated 10/01/23 @ 07:11 by Terry Larson MD) Obesity Family History Family History Father Pancreatic cancer Grandparent Breast cancer Social History Social History Smoking status: Never smoker Second hand tobacco smoke exposure: No Substance use: never Do You Feel Safe in your Home?: Yes Lack of Transportation: No Lack of Food: Never True Current Housing: I Have Housing Concerned About Future Housing: No Difficulty Paying Gas/Electric Bills: No Difficulty Paying for Meds: No Currently Unemployed: No Education: Bachelor's Degree Difficulty w/ Childcare or Family Care: No Spiritual care concerns: No Anes - Eval Final PreProcedure Day of Procedure 10/01/23 07:11 Patient weight: obese Heart: regular rate and rhythm Lungs: clear to auscultation Airway: Mallampati scale class II Neurological: alert and oriented Last oral intake: >/= 8 hours ASA classification: II Emergent: no Anesthetic plan: proceed Anesthesia type and monitoring: regional spinal and standard monitoring Results Review: All pre-operative results and documents have been reviewed as part of the pre-operative evaluation. Informed Consent: The patient's anesthetic plan and its attendant risks and benefits were discussed with the patient/family/POA. Questions were solicited and answers provided to the satisfaction of the patient/family/POA.
--- NOTE | 2023-10-01 07:42 | PM.IMHP ---
H&P: HPI History of Present Illness Date/Time: 10/01/23 07:42 Chief Complaint: Breech presentation Narrative: The patient is a [age]-year-old 1 admitted at 38 1/7 weeks for primary for breech presentation and preeclampsia. Bedside ultrasound this morning reveals the to still be in the breech presentation. The patient failed external cephalic version. The was complicated by hyperemesis. labs A-positive, rubella immune, RPR negative, hepatitis-B surface antigen negative, HIV negative, group B strep. Patient had level 2 ultrasound that was normal as well as a negative NIPT. FOR[facility]LY [facility] Past Medical History Medical History (Updated 10/01/23 @ 07:48 by Rosio Renteria MD) Depression Hypothyroid Obesity PCOS (polycystic ovarian syndrome) Pituitary microadenoma Family History Family History Father Pancreatic cancer Grandparent Breast cancer Social History Social History Smoking status: Never smoker Second hand tobacco smoke exposure: No Substance use: never Do You Feel Safe in your Home?: Yes Lack of Transportation: No Lack of Food: Never True Current Housing: I Have Housing Concerned About Future Housing: No Difficulty Paying Gas/Electric Bills: No Difficulty Paying for Meds: No Currently Unemployed: No Education: Bachelor's Degree Difficulty w/ Childcare or Family Care: No Spiritual care concerns: No Meds Home Medications and Allergies Home Medications Medication Instructions Recorded Confirmed Type ondansetron 4 mg disintegrating 4 mg PO Q6H #12 tabs 04/06/23 09/18/23 Rx tablet aspirin 81 mg tablet 81 mg PO DAILY 09/15/23 09/18/23 History cholecalciferol (vitamin D3) 125 125 mcg PO DAILY 09/15/23 09/18/23 History mcg (5,000 unit) tablet (Vitamin D3) ferrous sulfate 325 mg (65 mg 325 mg PO DAILY 09/15/23 09/18/23 History iron) tablet vits no.126-ferrous fum 1 tablet PO DAILY 09/15/23 09/18/23 History 28 mg iron-folic acid 800 mcg tablet (Classic ) sertraline 50 mg tablet 50 mg PO DAILY 09/15/23 09/18/23 History cyclobenzaprine 10 mg tablet 10 mg PO Q8H PRN Muscle Spasm 7 09/19/23 Rx days #15 tabs Allergies Allergy/AdvReac Type Severity Reaction Status Date / Time No Known Allergies Allergy Mild Verified 09/18/23 09:20 Vital Signs Vital Signs - 24 hr 10/01/23 06:49 10/01/23 06:38 10/01/23 06:45 Pulse Rate 79 84 Blood Pressure 109/74 112/77 Oxygen Delivery Room Air 10/01/23 07:00 10/01/23 07:15 Pulse Rate 72 74 Blood Pressure 113/73 117/82 Oxygen Delivery Exam Const: General: healthy appearing and alert Orientation/consciousness: patient oriented x3 Resp: Effort & Inspection: normal respiratory effort GI: GI Palp: Yes Soft to palpation, No Tenderness to palpation present (GI) and Yes Other GI palpation findings present ( fundal height 39cm) : External Female Exam: normal external appearance Speculum Exam - Vagina: normal appearance of the vagina and normal vaginal discharge Speculum Exam - Cervix: normal appearance of the cervix Bimanual exam- vagina & uterus: enlarged ( 39cm, gravid uterus) Bimanual Exam- Adnexa, other: normal adnexae and No adnexal tenderness Neuro: General: patient oriented x3 Assessment and Plan Assessment and plan (1) 38 weeks gestation of : Code(s): Z3A.38 - 38 weeks gestation of Status: Acute (2) Preeclampsia: Code(s): O14.90 - Unspecified pre-eclampsia, unspecified trimester Status: Acute (3) Breech presentation: Code(s): O32.1XX0 - Maternal care for breech presentation, not applicable or unspecified Status: Acute Assessment and Plan: plan to proceed with primary delivery
--- NOTE | 2023-10-01 07:49 | WPDHPUPDATE1 ---
History and Physical Update Update Date/Time: 10/01/23 07:49 History and Physical has been reviewed, including an updated exam of the patient. There are NO changes in the patient's condition. Risks, benefits, and alternatives have been discussed and questions answered. Patient agrees to proceed with procedure.
[2023-10-01] MEDS: LACTATED RINGERS 1,000 ML 999 ML IV CONT (07:50)
[2023-10-01] MEDS: ONDANSETRON INJ 4 MG/2 ML VIAL IV PUSH (07:51)
[2023-10-01 07:52] LABS: HIV 1/2 Ab P24 Ag Result Negative (Negative)
[2023-10-01] MEDS: FAMOTIDINE 20 MG/2 ML VIAL IV PUSH (07:52)
[2023-10-01] MEDS: ceFAZolin 2 GM/D5W 50 ML 2 GM/50 ML BAG IVPB (08:16)
--- NOTE | 2023-10-01 09:06 | P.PCNOB_ITS ---
OB - Delivery Note Procedure Delivery date: 10/01/23 Pre-op diagnosis: Breech Presentation, Preeclampsia w/o severe features and Other (Intrauterine at 38-1/7 week) Post-op Diagnosis: Same Delivery monitor: External FHT and External Uterine Prior to decision for section, ACOG/SM labor guidelines were considered and discussed with the patient and staff. Decision made to proceed with the section.: Yes Procedure Performed: Primary Primary branch: low cervical, transverse Surgeon: Rosio Renteria MD Anesthesia type: Spinal Description of Procedure/Findings: The patient is taken to the operating room and placed under spinal anesthesia in the dorsal supine position. She was prepped and draped in the usual sterile fashion. Once anesthesia was deemed adequate, A Pfannenstiel skin incision was made with a scalpel. The incision was carried down to the underlying layer of fascia which was nicked in the midline and extended laterally using Palencia scissors. Bleeding vessels were cauterized in the subcutaneous tissue. The fascia extended with os Finders and dissected off using sharp and blunt dissection. The rectus muscles are in the midline. The peritoneum was tented and entered with Metzenbaum scissors. The incision was extended with blunt traction. The Scott O retractor was placed.The bladder flap was quite low on the uterus therefore a low-transverse incision was made without creating a bladder flap. The incision was extended with blunt traction. The membranes are ruptured and clear fluid noted. The breech is delivered while the nursing home assistant administrator applied fundal pressure. The infant was delivered to the scapula and the infant rotated and the right arm delivered spontaneously. The was rotated and the left arm delivered spontaneously. The was extended on the abdomen and the head delivered spontaneously. The cord was clamped and cut after 1minute and the infant handed to the awaiting OB nurse. The cord gases and cord blood were taken. The placenta delivered spontaneously. Uterus was cleared of all clots and debris. The uterine incision was closed with 0 Monocryl in a running locked fashion. Same suture was used to imbricate. Good hemostasis is noted. The gutters are irrigated and the incision again inspected and noted to be hemostatic. The Scott O retractor was removed. The fascia was then closed using 0 Vicryl in a running fashion. Subcutaneous tissues were irrigated made hemostatic using Bovie cautery. Skin closed using 4 0 Vicryl in a subcuticular fashion. Skin glue is placed over the incision. Sponge, needle, and instrument counts are correct per the OR staff. The patient received Ancef prior to incision. Patient was taken to recovery in stable condition. Specimen: No Estimated Blood Loss: 520 Drains: Yes ( Hicks catheter) Packing: No Pathology: None sent Complications: No immediate complications Condition: Stable Disposition: Floor Baby Date of : 10/01/23 Gestational Age by Date: 38 (38 03/07) Infant gender: Female Weight (pounds): 6 Weight (ounces): 13 presentation: polina breech position: Right Sacrum Anterior Placenta delivery description: Spontaneous and Normal Configuration Cord Vessel Description: 3 Vessels and Delayed Cord Clamping score one minute: 8 score five minutes: 9
--- NOTE | 2023-10-01 09:18 | PM.OBDSVD ---
DS: Admitting Diagnosis Discharge Date 10/04/23 Admitting Diagnosis Intrauterine at 38-,1/7 weeks breech presentation with prior failed external version preeclampsia DS: Discharge Diagnosis Discharge Diagnosis (1) Breech presentation: Code(s): O32.1XX0 - Maternal care for breech presentation, not applicable or unspecified Status: Acute (2) Preeclampsia: Code(s): O14.90 - Unspecified pre-eclampsia, unspecified trimester Status: Acute (3) Delivery by section using transverse incision of lower segment of uterus: Code(s): O82 - Encounter for delivery without indication Status: Acute OB - DS: Summary OB Procedures : Ultrasound and External version ( failed) OB Procedures Intrapartum: low cervical, transverse OB Procedures: : None Peripartum Data Infant Delivery Method: Section Procedures: Procedures Operation Date: 10/01/23 08:00 <No data on this case meets the specified criteria> complications: none Status at Discharge Functional status at discharge: independent ambulation Overall status at discharge: patient is progressing back to baseline Time Spent with Patient Time attestation: Total time spent providing and/or coordinating discharge services: DS: Data Data Completed and Pending Labs on day of discharge: Labs from last 24 hours 10/01/23 06:38 RPR Pending HIV 1&2 Ab/P24 Ag 4thGn Negative Blood Type A Positive Antibody Screen Negative Discharge Plan Discharge Attending physician on discharge: Rosio Renteria Discharging Clinician: Rosio Renteria Anticipated Discharge Date/Time: 10/04/23 09:19 Patient Disposition: Home, Self-Care Activity: may shower, may drive after 2 weeks and pelvic rest Diet: regular Wound Care Instructions: incision open to air Patient Instructions: Antibiotic Form Stand Alone Forms: General Discharge Information Follow-up/Referrals: Rosio Renteria MD [Physician] - 1 Week ( and 6 week) Discharge Medications: New hydrocodone-acetaminophen 5-325 mg tablet 1 tablet PO Q4H PRN (Reason: pain) Qty: 20 0RF Continued sertraline 50 mg tablet 50 mg PO DAILY Classic 28 mg iron- 800 mcg Tablet 1 tablet PO DAILY Discontinued ondansetron 4 mg Tablet,Disintegrating 4 mg PO Q6H Qty: 12 0RF Rx Instructions: Insert rectally every 6 hours as needed for nausea and vomiting. ferrous sulfate 325 mg (65 mg iron) Tablet 325 mg PO DAILY aspirin 81 mg Tablet 81 mg PO DAILY cholecalciferol (vitamin D3) [Vitamin D3] 125 mcg (5,000 unit) Tablet 125 mcg PO DAILY cyclobenzaprine 10 mg Tablet 10 mg PO Q8H PRN (Reason: Muscle Spasm) 7 Days Qty: 15 0RF Date of admission: 10/01/23 06:00 Primary Care Provider: JULIANWILEY Admitting Provider: Rosio Renteria Attending physician on admission: Rosio Renteria Condition: Stable
[2023-10-01] MEDS: LIDOCAINE 5% PATCH 1 PATCH TRANSDERM (10:31)
[2023-10-01] MEDS: OXYTOCIN 30 UNITS/NS 500 ML 30 UNITS/500 ML BAG 125 UNITS IV CONT (10:35)
[2023-10-01 10:40] LABS: Rapid Plasma Reagin Non-Reactive (NonReactive)
--- NOTE | 2023-10-01 11:32 | OBPPTRN ---
Patient transferred to post room #292 via stretcher. Support person present. Oriented to unit, room, information board, rooming in, admission packet and security measures. Patient verbalizes understanding.
[2023-10-01] MEDS: ACETAMINOPHEN 325 MG TABLET 650 MG PO ×2 (12:46→18:27)
[2023-10-01] MEDS: KETOROLAC 15 MG/ML VIAL (*BKC) IV PUSH ×2 (12:47→18:27)
[2023-10-01] MEDS: SIMETHICONE 80 MG TAB.CHEW PO ×2 (12:47→16:35)
[2023-10-01] MEDS: DEXTROSE 5%/0.45% SOD CHL 1,000 ML 125 ML IV CONT (15:52)
[2023-10-01] MEDS: DOCUSATE SODIUM 100 MG CAPSULE PO (16:35)
--- NOTE | 2023-10-01 17:45 | PC.NURSE ---
Addendum entered by Susannha Gutierrez RN 10/01/23 17:46: Called to room by RN - patient is frustrated with infants inability to latch. Patient educated on how to properly latch . was able to successfully latch using nipple shield. Mother expresses slight pain when latches but the pain does subside. Mother handles infant well and remains calm for this interaction. Discussed with mother to call RN if will not latch for next feeding. RN updated. Original Note: Introductions were made, then consulted with patient to assess needs related to . Mother led the conversation with her?plans to feed?her infant and the?experience so far. Mother works well with her with encouragement and education. Reviewed positioning and ear, shoulder, hip alignment, supporting the breast to facilitate a deep latch, asymmetrical latch (off-center), leading with the chin with a big, open, wide gape and body close to mother. Education given to the mother of how to visualize the suckling (with good rocking jaw motion), swallows (dropping of the lower jaw) and how to listen for drinking at the breast (the ka sound). Infant was [able/unable] to maintain latch without pain to mother protecting the nipple with optimal positioning and latching. Reviewed comfort measures of healing with a warm, wet washcloth to rinse breast, then leave open to air-dry, good handwashing when or touching the breast/nipples to prevent infection. Mother voiced understanding of skin to skin, stimulating with massage touch, responsive feedings, hand expressed colostrum, talking to infant to encourage if it has been 2 -2.5 hours since the start of the last , to call if does not latch, or if there is discomfort with . Resources used for education were facilitated. Reported to the Primary RN.
--- NOTE | 2023-10-01 20:51 | PC.NURSE ---
Addendum entered by Martha Freeman RN 10/02/23 06:24: Care coordination consult not placed by this rn. As shift progressed and more education was given to pt on normal infant behaviors and - pt appeared less frustrated with feedings and more receptive to instruction. Original Note: 2000- Assiting pt with , mother with flat affect states that she is not a baby person when I asked if she has been around many newborns. Mother also frustrated with infant feedings, states that she does not want to use the nipple shield and voices frustration when does not maintain a latch. This RN placed care coordination consult to evalute and to possibly give resources if needed.
[2023-10-01] MEDS: HYDROcodone/acetaminophen (*CRX) 5-325 MG TABLET 1 TAB PO (22:21)
[2023-10-02 00:05] VITALS: BP 128/71; PULSE 77; RESP 16; TEMP 36.8; O2SAT 99
[2023-10-02] MEDS: KETOROLAC 15 MG/ML VIAL (*BKC) IV PUSH ×2 (00:38→07:56)
[2023-10-02] MEDS: ACETAMINOPHEN 325 MG TABLET 650 MG PO ×4 (00:38→18:57)
[2023-10-02 04:59] LABS: Basophils Absolute Auto 0.1 K/mm3 (0.0-0.1); Basophils Percent Auto 0.4 % (0.2-1.2); Eosinophils Absolute Auto 0.2 K/mm3 (0-0.3); Eosinophils Percent Auto 1.3 % (0-4.4); Hematocrit 35.3 % (37.0-47.0); Hemoglobin 10.4 g/dL (12.0-15.0); Immature Granulocyte Percent A 0.6 % (0-0.5); Lymphocytes Absolute Auto 2.73 K/mm3 (0.9-3.2); Lymphocytes Percent Auto 16.5 % (18.3-44.2); Mean Corpuscular HGB Conc 29.5 g/dl (32-36); Mean Corpuscular Hemoglobin 29.1 pg (26-34); Mean Corpuscular Volume 98.9 fl (80-100); Mean Platelet Volume 11.3 fl (7.4-10.4); Monocytes Absolute Auto 1.2 K/mm3 (0.1-0.6); Monocytes Percent Auto 7.5 % (2.6-8.5); Neutrophils Absolute Auto 12.2 K/mm3 (1.3-6.7); Neutrophils Percent Auto 73.7 % (45.5-73.1); Platelet Count Result 253 k/mm3 (150-375); Red Blood Count 3.57 M/mm3 (4.2-5.4); Red Cell Distribution Width 14.5 % (11.5-14.5); White Blood Count 16.5 K/mm3 (4.5-10.0)
[2023-10-02] MEDS: HYDROcodone/acetaminophen (*CRX) 10-325 MG TABLET 1 TAB PO (05:07)
[2023-10-02 05:55] VITALS: BP 113/71; PULSE 63; RESP 16; TEMP 36.7; O2SAT 99
--- NOTE | 2023-10-02 06:02 | P.PNOB_ITS ---
OB - PN: Subj Subjective Date/time seen: 10/02/23 06:02 Patient comments: no complaints and pain well controlled baby status: doing well OB - PN: Obj Data Labs 10/02/23 04:45 Labs: Laboratory Results - last 24 hr 10/01/23 10/02/23 06:38 04:45 WBC 16.5 H RBC 3.57 L Hgb 10.4 L Hct 35.3 L MCV 98.9 D MCH 29.1 MCHC 29.5 L RDW 14.5 Plt Count 253 MPV 11.3 H Immature Gran % (Auto) 0.6 H Neut % (Auto) 73.7 H Lymph % (Auto) 16.5 L Wilkinson % (Auto) 7.5 Eos % (Auto) 1.3 Baso % (Auto) 0.4 Lymph # (Auto) 2.73 Wilkinson # (Auto) 1.2 H Eos # (Auto) 0.2 Baso # (Auto) 0.1 Abs Immat Gran (auto) 0.10 H Absolute Neuts (auto) 12.2 H Absolute Nucleated RBC 0.000 Nucleated RBC % 0.0 RPR Non-reactive HIV 1&2 Ab/P24 Ag 4thGn Negative Blood Type A Positive Antibody Screen Negative OB - PN A/P Plan day: 1 Plan: routine care Comments: bp is stable Time Spent With Patient Time: Total time spent is greater than 50% in coordination of care (as documented) at patient's floor/unit and/or counseling patient: Time with patient: less than 15 minutes Exam Const: General: cooperative, healthy appearing and comfortable Nutritional Appearance: average body habitus Orientation/consciousness: oriented to person, oriented to place and oriented to time Resp: Effort & Inspection: normal respiratory effort Cardio: Rate: regular rate Rhythm: regular rhythm Heart sounds: S1 normal heart sound present and S2 normal heart sound present GI: Inspection: normal to inspection and incision (cdi)
--- NOTE | 2023-10-02 06:07 | PC.NURSE ---
0510- Infant up to restroom with standby assist to void- hat unavailable and pt did void without measurement. Hat now placed in toilet for next void.
[2023-10-02] MEDS: SIMETHICONE 80 MG TAB.CHEW PO ×3 (07:55→17:13)
[2023-10-02] MEDS: MULTIVIT/MIN/PREN/FOL AC/IRON TABLET 1 TAB PO (07:56)
[2023-10-02 08:00] VITALS: BP 120/69; PULSE 58; RESP 16; TEMP 36.2; O2SAT 100
--- NOTE | 2023-10-02 08:17 | WPDANLDNPN2 ---
Anes-Prog Note L&D-Neuraxial Date/Time: 10/02/23 08:17 Neuraxial medications: intrathecal PF morphine Opiod-related complaints: none Patient feedback: Patient satisfied with post-operative pain management.
--- NOTE | 2023-10-02 08:18 | WPDANLDPN2 ---
Anes-Prog Note L&D Date/Time: 10/02/23 08:18 Comfortable throughout: labor and delivery Neuraxial method: spinal Epidural/Spinal procedure site: clean & non-tender Neuro status: Neuro function grossly intact. Cardiovascular status: normal Respiratory status: normal Airway patency: baseline Mental status: baseline Post-Op hydration status: normal Vital Signs: Last Vital Signs Temp 36.7 C 10/02/23 05:55 Pulse 63 10/02/23 05:55 Resp 16 10/02/23 05:55 BP 113/71 10/02/23 05:55 Pulse Ox 99 10/02/23 05:55 O2 Del Method Room Air 10/01/23 10:59 Pain score (VAS): 1 I/O: Intake & Output 10/01/23 10/02/23 10/02/23 23:59 07:59 15:59 Intake Total 1300 740 Output Total 1800 1000 Balance -500 -260 Post-procedural complaints: none Patient feedback: Patient satisfied with anesthetic care.
[2023-10-02] MEDS: HYDROcodone/acetaminophen (*CRX) 5-325 MG TABLET 1 TAB PO ×2 (13:12→22:49)
[2023-10-02] MEDS: DOCUSATE SODIUM 100 MG CAPSULE PO ×2 (13:12→17:13)
[2023-10-02] MEDS: IBUPROFEN 600 MG TABLET PO ×2 (13:13→18:57)
[2023-10-02] MEDS: LIDOCAINE 5% PATCH 1 PATCH TRANSDERM (13:14)
[2023-10-02] MEDS: SERTRALINE HCL 50 MG TABLET PO (13:14)
[2023-10-02 18:43] VITALS: BP 109/72; PULSE 67; RESP 16; TEMP 36.6; O2SAT 100
--- NOTE | 2023-10-02 21:07 | PC.NURSE ---
10/02/2023 @ 2006 Patient crying and upset. I then began a conversation about being diagnosed with a pituitary microadenoma and being prescribed Cabergoline. Patient states she should be (as she says she had planned on going back on Cabergoline after she delivered. The medication had been discontinued when she found out she was ). But I don't know if I can...if it's safe for baby. I asked the patient if she had spoken to Dr. Renteria and she said had started but when the Pre-eclampsia came up that was all that was spoken about, and that they would figure out the Cabergoline later, this all happened a week early you know. I called and informed Dr. Wojciech Tubbs said he would not prescrib Cabergoline if the patient wants to breastfeed as it will knock out . The patient may do as she desires. I had earlier showed mother how to use the breastpump as baby had not fed this afternoon. 1800 for 17 minutes. Mother and her significant other are trying to decide if they want to continue to breastfeed or formula feed. I shouldn't of procrastinated and have called my doctor about this. Xochitl states she sees an [facility] Operator, who prescribes the Cabergoline.
[2023-10-03] MEDS: ACETAMINOPHEN 325 MG TABLET 650 MG PO ×4 (00:52→20:03)
[2023-10-03] MEDS: IBUPROFEN 600 MG TABLET PO ×4 (00:52→20:03)
[2023-10-03 00:55] VITALS: BP 141/95; PULSE 98; RESP 16; TEMP 36.3; O2SAT 100
--- NOTE | 2023-10-03 02:09 | OBPPTRN ---
10/03/2023 at 0052 Patient transferred to post room #290 on stretcher. Significant other and friend Roro Paulson . Patient, significant other, and family friend oriented to unit, room, information board, rooming in, admission packet and security measures. All verbalizes understanding.
--- NOTE | 2023-10-03 03:01 | PC.NURSE ---
10/03/2023 at 0055 Patient states she feels shakey and it's getting worse. Bleeding, fundus, and VS checked and WNL. Patient helped OOB and to the bathroom. I took warm blankets back into the patient, however by the time I got back she said she was hot. Patient refuses add'l pain relief and states all needs are met. I asked patient to call out if any needs arise. Patient states understanding.
[2023-10-03 07:30] VITALS: BP 111/70; PULSE 77; RESP 16; TEMP 36.4; O2SAT 100
--- NOTE | 2023-10-03 08:03 | PM.OBPNVD ---
OB - PN: Subj Subjective Date/time seen: 10/03/23 08:03 Patient comments: no complaints and pain well controlled baby status: doing well OB - PN: Obj Data Labs 10/02/23 04:45 OB - PN A/P Plan day: 2 Plan: routine care Time Spent With Patient Time: Total time spent is greater than 50% in coordination of care (as documented) at patient's floor/unit and/or counseling patient: Time with patient: less than 15 minutes Exam Const: General: cooperative, healthy appearing and comfortable Nutritional Appearance: average body habitus Orientation/consciousness: oriented to person, oriented to place and oriented to time Resp: Effort & Inspection: normal respiratory effort GI: Inspection: normal to inspection and incision (cdi)
[2023-10-03] MEDS: SIMETHICONE 80 MG TAB.CHEW PO ×3 (08:08→16:09)
[2023-10-03] MEDS: DOCUSATE SODIUM 100 MG CAPSULE PO ×2 (08:09→16:09)
[2023-10-03] MEDS: SERTRALINE HCL 50 MG TABLET PO (08:09)
[2023-10-03] MEDS: MULTIVIT/MIN/PREN/FOL AC/IRON TABLET 1 TAB PO (08:09)
--- NOTE | 2023-10-03 13:24 | PC.NURSE ---
Patient instructed on viewing the discharge video Mother & Baby Care, The First Two Weeks . Patient was given the opportunity and encouraged to ask questions. Patient verbalized understanding of information shared and has been given the mother/baby guide for home reference.
[2023-10-03] MEDS: LIDOCAINE 5% PATCH 1 PATCH TRANSDERM (14:32)
[2023-10-04] MEDS: ACETAMINOPHEN 325 MG TABLET 650 MG PO ×2 (02:08→07:59)
[2023-10-04] MEDS: IBUPROFEN 600 MG TABLET PO ×2 (02:08→07:59)
[2023-10-04] MEDS: SIMETHICONE 80 MG TAB.CHEW PO (07:59)
[2023-10-04] MEDS: SERTRALINE HCL 50 MG TABLET PO (07:59)
[2023-10-04] MEDS: MULTIVIT/MIN/PREN/FOL AC/IRON TABLET 1 TAB PO (07:59)
[2023-10-04] MEDS: DOCUSATE SODIUM 100 MG CAPSULE PO (07:59)
[2023-10-04 08:00] VITALS: BP 129/82; PULSE 79; RESP 18; TEMP 36.4; O2SAT 100
--- NOTE | 2023-10-04 08:39 | PM.OBPNVD ---
OB - PN: Subj Subjective Date/time seen: 10/04/23 08:39 Patient comments: no complaints baby status: doing well [place] feeding status: breast and bottle feeding OB - PN: Obj Data Labs 10/02/23 04:45 OB - PN A/P Plan day: 3 Plan: routine care and discharge home Time Spent With Patient Time: Total time spent is greater than 50% in coordination of care (as documented) at patient's floor/unit and/or counseling patient: Exam Narrative: inc c/d/i : Bimanual exam- vagina & uterus: other (Uterus firm, nt @U)
--- NOTE | 2023-10-04 08:50 | PC.NURSE ---
Consulted with mother concerning . Mother states we will probably stick to bottle feeding but we will still try to breastfeed from time to time . This RN gave mother information on how to reach RN's after discharge in case any questions or concerns may arise. Mother appears to be in better spirits today regarding feeding infant. Mother voiced understanding of the information shared, is confident to continue effectively feeding her infant at home, when to call for assistance, denies any additional assistance or education at this time. Reported to the Primary RN.
[2023-10-06 09:12] VITALS: BP 109/79; RESP 18; TEMP 36.5; O2SAT 100
== END 2023-10-04 09:15 | disposition home or self-care (01) | DRG 788 ==
LOC: ANHLDR 09:21 → ANHOB2 11:40
PROVIDERS: Admitting Provider Obstetrics & Gynecology Gynecology; PCP Nurse Practitioner Family; Visit Provider Obstetrics & Gynecology Gynecology
DX: O32.1XX0 Maternal care for breech presentation, not applicable or unspecified (principal); Z37.0 Single live birth; Z3A.38 38 weeks gestation of pregnancy; O14.04 Mild to moderate pre-eclampsia, complicating childbirth
CPT/HCPCS: 36415; 59025; 80053; 81001; 81050; 82570; 82575; 84156; 84550; 85025; 86592; 86703; 86850; 86900; 86901; 87086; 99199; A9270; G0432; J0690; J1885; J2175; J2274; J2371; J2405; J2590; J7120

== ENCOUNTER 2023-10-15 01:19 | Emergency (ER) | payer OTHER, SELFPAY ==
[2023-10-15] VITALS (17 sets, daily range): BP systolic 121–156; BP diastolic 74–96; PULSE 62–87; RESP 11–16; TEMP 36.4–37.1; O2SAT 98–100
--- NOTE | ~2023-10-15 | CT_ITS ---
EXAMINATION: CTA chest PE protocol DATE: 10/15/2023 03:27 INDICATION: Chest pain and shortness of breath. . TECHNIQUE: Computed tomography angiography (CTA) of the chest was performed with 100 mL Omnipaque-350 intravenous contrast timed to evaluate the pulmonary arteries. Coronal maximum intensity projection 3D-reconstructions were created by the technologist. Automated exposure control and iterative reconst ruction technique were employed. The dose-length product was 453.47 mGy-cm. COMPARISON: Chest CT 12/09/2007 FINDINGS: There is a 3 mm nodule in right lung, likely benign. There is a 5 mm nodule in left lower l obe, likely benign. Calcified pulmonary nodules and calcified hilar lymph nodes are consistent with o ld granulomatous disease. No pleural effusion. The heart size is normal. No pericardial effusion. Mikayla n pulmonary is enlarged, consistent with pulmonary arterial hypertension. There is no pulmonary embol us. Calcifications in the spleen are consistent with old granulomatous disease. There is mild thoraci c spondylosis. IMPRESSION: 1. No pulmonary embolus. Reviewed, dictated and finalized at location A. IMPRESSION: 1. No pulmonary embolus.
--- NOTE | ~2023-10-15 | XR_ITS ---
EXAMINATION: XR chest 2V DATE: 10/15/2023 02:00 INDICATION: Chest pain. TECHNIQUE: Frontal and lateral views of the chest were obtained. COMPARISON: Chest 2 views 12/09/2007 FINDINGS: There is no pneumonia, pleural effusion, or pneumothorax. The heart size is normal. IMPRESSION: 1. No acute cardiopulmonary disease. Reviewed, dictated and finalized at location A.
--- NOTE | 2023-10-15 01:20 | ECG_ITS ---
Test Date: 2023-10-15 01:30:36 Measurements Intervals [place] Rate: 87 P: 24 WA: 167 QRS: -28 QRSD: 149 T: 15 QT: 385 QTc: 463 Interpretive Statements SINUS RHYTHM BORDERLINE LEFT AXIS DEVIATION [QRS AXIS < -20] RIGHT BUNDLE BRANCH BLOCK [120+ ms QRS DURATION, UPRIGHT V1, 40+ ms S IN I/aVL/V4/V5/V6] ABNORMAL ECG No previous ECG available for comparison Electronically Signed On 10-15-2023 14:59:44 CDT by Jax Cooper M.D.
--- NOTE | 2023-10-15 01:39 | ED.CHESTPAIN ---
HPI - Chest Pain General Chief Complaint: Chest Pain Stated Complaint: chest pain, dyspnea Time Seen by Provider: 10/15/23 01:35 Source: patient and family Mode of arrival: ambulatory Limitations: no limitations History of Present Illness HPI narrative: Patient is 3 female 14 days from a section of a 38 week gestational age fetus. Caesarean section was due to breech presentation as well as preeclampsia. Patient started having mid back pain overnight that then radiated into her chest. This was associated with shortness of breath. She denies any cough or fever. Denies any lower extremity edema. She trialed a muscle relaxer, [place], for ibuprofen and Tylenol which seemed to help with back pain but not chest pain. OB Gyne is Dr Renteria; delivery occurred her at [facility]. No prior history of hypertension, hyperlipidemia, diabetes mellitus, myocardial infarction, CVA/TIA. Nonsmoker. No family history of myocardial infarction less than 65 years old. Related Data Home Medications Medication Instructions Recorded Confirmed vits no.126-ferrous fum 1 tablet PO DAILY 09/15/23 10/01/23 28 mg iron-folic acid 800 mcg tablet (Classic ) sertraline 50 mg tablet 50 mg PO DAILY 09/15/23 10/01/23 Allergies Allergy/AdvReac Type Severity Reaction Status Date / Time No Known Allergies Allergy Mild Verified 10/15/23 01:20 [facility] Past Medical History Medical History Depression Hypothyroid Obesity PCOS (polycystic ovarian syndrome) Pituitary microadenoma Preeclampsia Surgical History Surgical History (Updated 10/15/23 @ 06:09 by Nicole Fiore MD) History of section 10/01/23 Family History Family History Father Pancreatic cancer Grandparent Breast cancer Social History Social History Smoking status: Never smoker Second hand tobacco smoke exposure: No Substance use: never Do You Feel Safe in your Home?: Yes Lack of Transportation: No Lack of Food: Never True Current Housing: I Have Housing Concerned About Future Housing: No Difficulty Paying Gas/Electric Bills: No Difficulty Paying for Meds: No Currently Unemployed: No Education: Bachelor's Degree Difficulty w/ Childcare or Family Care: No Spiritual care concerns: No Exam Narrative: GENERAL: Well-appearing, well-nourished, and in no acute distress. HEAD: Normocephalic, atraumatic. EYES: Non injected, non icteric ENT: Nares clear, no rhinorrhea or epistaxis. NECK: Supple. CHEST: Speaking in full sentences. No respiratory distress. Lungs clear to auscultation bilaterally without appreciable wheezes or crackles. No focal areas of consolidation. No pulse deficit radially. HEART: Regular rate and rhythm. . ABDOMEN: Soft, nondistended. EXTREMITIES: Normal range of motion. No lower extremity edema. SKIN: Warm, dry, no rash. NEURO: No focal deficits. Alert and oriented x3. PSYCH: Normal mood and affect. Course Vital Signs Vital signs: Vital Signs Temperature 97.6 F 10/15/23 01:26 Pulse Rate 81 10/15/23 01:26 Respiratory Rate 14 10/15/23 01:26 Blood Pressure 156/96 H 10/15/23 01:26 Pulse Oximetry 100 10/15/23 01:26 Oxygen Delivery Room Air 10/15/23 01:26 Temperature 98.7 F 10/15/23 03:33 Pulse Rate 64 10/15/23 06:15 Respiratory Rate 12 10/15/23 06:15 Blood Pressure 132/88 10/15/23 06:15 Pulse Oximetry 100 10/15/23 06:15 Oxygen Delivery Room Air 10/15/23 01:56 MDM - Chest Pain MDM Narrative Medical decision making narrative: Patient presents with chest pain and dyspnea. This started as mid back pain radiated to her chest beginning at 20:00. In the emergency department she is afebrile with vital signs notable for hypertension, however not g
[2023-10-15 01:42] LABS: Basophils Absolute Auto 0.1 K/mm3 (0.0-0.1); Basophils Percent Auto 0.5 % (0.2-1.2); Eosinophils Absolute Auto 0.2 K/mm3 (0-0.3); Eosinophils Percent Auto 1.8 % (0-4.4); Hematocrit 35.5 % (37.0-47.0); Hemoglobin 11.6 g/dL (12.0-15.0); Immature Granulocyte Absolute 0.05 K/mm3 (0.00-0.031); Immature Granulocyte Percent A 0.4 % (0-0.5); Lymphocytes Absolute Auto 1.86 K/mm3 (0.9-3.2); Lymphocytes Percent Auto 15.3 % (18.3-44.2); Mean Corpuscular HGB Conc 32.7 g/dl (32-36); Mean Corpuscular Hemoglobin 28.8 pg (26-34); Mean Corpuscular Volume 88.1 fl (80-100); Monocytes Absolute Auto 0.7 K/mm3 (0.1-0.6); Monocytes Percent Auto 5.3 % (2.6-8.5); Neutrophils Absolute Auto 9.3 K/mm3 (1.3-6.7); Neutrophils Percent Auto 76.7 % (45.5-73.1); Platelet Count Result 341 k/mm3 (150-375); Red Blood Count 4.03 M/mm3 (4.2-5.4); Red Cell Distribution Width 13.7 % (11.5-14.5); White Blood Count 12.2 K/mm3 (4.5-10.0)
[2023-10-15 01:52] LABS: Alanine Aminotransferase 29 U/L (6-35); Alkaline Phosphatase 104 U/L (38-126); Anion Gap 12 mmol/L (4-12); Aspartate Amino Transferase 46 U/L (14-36); Bilirubin,Total 0.2 mg/dL (0.2-1.3); Blood Urea Nitrogen 13 mg/dL (7-17); Calcium 9.1 mg/dL (8.4-10.2); Carbon Dioxide 23 mmol/L (22-30); Chloride 102 mmol/L (98-107); Estimated CRCL calculation 117 ml/min; Estimated Glomerular Filt Rate > 60; Glucose 114 mg/dL (65-110); Lipase 269 U/L (23-300); Potassium 3.7 mmol/L (3.4-5.0); Sodium 137 mmol/L (137-145)
[2023-10-15] MEDS: ASPIRIN 81 MG CHEWABLE TABLET 324 MG PO (01:55)
[2023-10-15 02:03] LABS: Troponin I < 0.012 ng/mL (0.000-0.034)
[2023-10-15 02:08] LABS: INR 0.9; Prothrombin Time 12.7 Seconds (11.1-14.7)
[2023-10-15 02:09] LABS: Partial Thromboplastin Time 27.4 Seconds (22.3-36.8)
[2023-10-15] MEDS: MORPHINE SULFATE (*CRX) 4 MG/ML INJ IV PUSH (02:15)
[2023-10-15 02:27] LABS: D Dimer 2.68 ug/mL (<0.48)
[2023-10-15 02:37] LABS: BEDSIDEPREGUCG Negative
[2023-10-15 02:37] LABS: Magnesium 1.9 mg/dL (1.6-2.3)
[2023-10-15] MEDS: SODIUM CHLORIDE 0.9% IV 1,000 ML 999 ML IV CONT (02:46)
[2023-10-15 02:48] LABS: NT Pro B Type Natriuretic Pept < 20 pg/mL (19.9-100)
[2023-10-15 03:03] LABS: Add Urine Microscopic? YES; Appearance Urine Clear (Clear); Bacteria Urine None Seen /hpf; Bilirubin Urine Negative (Negative); Blood Urine Negative (Negative); Color Urine Yellow (Yellow); Glucose Urine UA Negative (Negative); Ketones Urine Negative (Negative); Leukocyte Esterase Ur 3+ LEU/UL (Negative); Nitrate Urine Negative (Negative); Non Pathogenic Casts 0-2; Protein Urine Negative (Negative); RBC Urine 0-2 /hpf (0-2); Squamous Epithelial Cell Urine None Seen /hpf (Few); Urobilinogen Urine 0.2 mg/dL (<2.0); WBC Urine 51-100 /hpf (0-3)
[2023-10-15 03:42] LABS: Influenza A QL RT-PCR Negative (Negative); Influenza B QL RT-PCR Negative (Negative); RSV RNA, RT-PCR Negative (Negative); SARS-CoV-2 RNA PCR Negative (Negative)
--- NOTE | 2023-10-15 04:10 | ECG_ITS ---
Test Date: 2023-10-15 04:16:51 Measurements Intervals [place] Rate: 67 P: 46 [place]: 164 QRS: -23 QRSD: 149 T: 12 QT: 400 QTc: 423 Interpretive Statements SINUS RHYTHM BORDERLINE LEFT AXIS DEVIATION [QRS AXIS < -20] RIGHT BUNDLE BRANCH BLOCK [120+ ms QRS DURATION, UPRIGHT V1, 40+ ms S IN I/aVL/V4/V5/V6] ABNORMAL ECG Compared to ECG 10/15/2023 01:30:36 No significant changes Electronically Signed On 10-15-2023 15:03:39 CDT by Jax Cooper M.D.
[2023-10-15 04:43] LABS: Troponin I < 0.012 ng/mL (0.000-0.034)
== END 2023-10-15 06:24 | disposition home or self-care (01) ==
PROVIDERS: Emergency Provider Student in an Organized Health Care Education/Training Program; PCP Nurse Practitioner Family
DX: O99.893 Other specified diseases and conditions complicating puerperium (principal); R07.9 Chest pain, unspecified; R74.01 Elevation of levels of liver transaminase levels; D72.829 Elevated white blood cell count, unspecified; R82.81 Pyuria; O90.81 Anemia of the puerperium; D64.9 Anemia, unspecified; Z20.822 Contact with and (suspected) exposure to COVID-19; O99.285 Endocrine, nutritional and metabolic diseases complicating the puerperium; E03.9 Hypothyroidism, unspecified; E28.2 Polycystic ovarian syndrome; O99.215 Obesity complicating the puerperium; E66.9 Obesity, unspecified; O99.345 Other mental disorders complicating the puerperium; F32.A Depression, unspecified; Z79.899 Other long term (current) drug therapy; I45.10 Unspecified right bundle-branch block
CPT/HCPCS: 36415; 71046; 71275; 80053; 81001; 81025; 83690; 83735; 83880; 84484; 85025; 85380; 85610; 85730; 87086; 87088; 87637; 93005; 96361; 96374; 99284; A9270; J2270; J7030; Q9967

== ENCOUNTER 2024-09-12 13:51 | Outpatient (CLI) | payer OTHER, SELFPAY ==
--- NOTE | ~2024-09-12 | MM_ITS ---
EXAMINATION: MM screening cherelle BI w markell HISTORY: Screening TECHNIQUE: Craniocaudal and mediolateral oblique 3-D tomosynthesis images were obtained and synthetic 2-D images were generated. CAD analysis was submitted and interpreted. COMPARISON: 04/29/2022 BREAST PARENCHYMAL COMPOSITION: Not dense: There are scattered areas of fibroglandular density. FINDINGS: There is no evidence of suspicious mass, calcification, or architectural distortion to sugg est malignancy in either breast. There has been no suspicious interval change. IMPRESSION: 1. No mammographic evidence of malignancy. 2. Recommend routine screening mammography in one year. BI-RADS Category 1: Negative Reviewed, dictated and finalized at location B.
== END 2024-09-12 13:52 | disposition home or self-care (01) ==
LOC: MICIMG 13:52
PROVIDERS: PCP Nurse Practitioner Family; Visit Provider Obstetrics & Gynecology Gynecology
DX: Z12.31 Encounter for screening mammogram for malignant neoplasm of breast (principal)
CPT/HCPCS: 77063; 77067